=== PATIENT | male | born 1990 | race American Indian/Alaskan Native ===

== ENCOUNTER 2019-02-04 16:51 | Inpatient (IN) | payer OTHER ==
--- NOTE | 2019-02-04 17:13 | Emergency Department Report ---
ED Seizure HPI - General Chief Complaint: Seizure Stated Complaint: SEIZURE Time Seen by Provider: 02/04/19 17:01 Source: patient, EMS Mode of arrival: Stretcher Limitations: No Limitations - History of Present Illness Initial Comments: Patient is a 28-year-old male with seizure activity. Patient states he had a seizure about 20 minutes ago. Patient states he still feeling a little confused. Patient states she does not remember having a seizure. His seizure witnessed by his family. Mother is at bedside to help with history. Mother states the father stated denied his head and was confused after the shaking. The shaking lasted a few minutes and terminated on its own. Patient denies headache. Mother denies trauma. EMS brought the patient to the hospital. Patient states he drinks daily and his last beer was 10 AM this morning. MD Complaint: seizure -: Sudden Description of Episode: loss of consciousness, tonic-clonic movement, post-event confusion -: minutes(s) Witnessed:: Yes Trauma: No Seizure History: none Place: home Possible Precipitating Event: none Associated Symptoms: confusion, malaise. denies: chest pain, cough, diaphoresis, fever/chills, loss of appetite, rash, shortness of breath, syncope, weakness, tongue injury, shoulder dislocation Treatments Prior to Arrival: none - Related Data Allergies Allergy/AdvReac Type Severity Reaction Status Date / Time No Known Allergies Allergy Unverified 02/04/19 17:09 ED Review of Systems ROS: Stated complaint: SEIZURE Other details as noted in HPI Constitutional: denies: chills, fever Eyes: denies: eye pain, eye discharge, vision change ENT: denies: ear pain, throat pain Respiratory: denies: cough, shortness of breath, wheezing Cardiovascular: denies: chest pain, palpitations Endocrine: no symptoms reported Gastrointestinal: denies: abdominal pain, nausea, diarrhea Genitourinary: denies: urgency, dysuria Musculoskeletal: denies: back pain, joint swelling, arthralgia Skin: denies: rash, lesions Neurological: confusion. denies: headache, weakness, paresthesias Psychiatric: denies: anxiety, depression Hematological/Lymphatic: denies: easy bleeding, easy bruising ED Past Medical Hx - Past Medical History Previous Medical History?: Yes Additional medical history: arteriovenous malformation - Surgical History Past Surgical History?: Yes Additional Surgical History: Brain surgery - Family History Family history: no significant - Social History Smoking Status: Current Every Day Smoker Substance Use Type: Alcohol ED Physical Exam - General Limitations: No Limitations General appearance: alert, in no apparent distress - Head Head exam: Present: atraumatic, normocephalic - Eye Eye exam: Present: normal appearance - ENT ENT exam: Present: mucous membranes moist - Neck Neck exam: Present: normal inspection - Respiratory Respiratory exam: Present: normal lung sounds bilaterally. Absent: respiratory distress, wheezes, rales - Cardiovascular Cardiovascular Exam: Present: regular rate, normal rhythm. Absent: systolic murmur, diastolic murmur, rubs, gallop - GI/Abdominal GI/Abdominal exam: Present: soft, normal bowel sounds. Absent: distended, te nderness - Rectal Rectal exam: Present: deferred - Extremities Exam Extremities exam: Present: normal inspection - Back Exam Back exam: Present: normal inspection - Neurological Exam Neurological exam: Present: alert, oriented X3 - Psychiatric Psychiatric exam: Present: normal affect, normal mood - Skin Skin exam: Present: warm, dry, intact, normal color. Absent: rash ED Course Vital Signs 02/04/19 17:19 Temperature 98.3 F Pulse Rate 78 Respiratory 16 Rate Blood Pressure 105/86 [Left] O2 Sat by Pulse 98 Oximetry - Reevaluation(s) Reevaluation #1: I discussed all results with patient. Patient was admitted to the hospitalist service. Patient agrees with plan of care and admission. 02/04/19 19:50 - Consultations Consultation #1: Hospitalist consult for admission. Hospitalist to admit patient and assume care of patient. 02/04/19 19:50 ED Medical Decision Making - Lab Data Result diagrams: 02/04/19 18:15 02/04/19 18:15 - Radiology Data Radiology results: report reviewed CT head/brain wo con INDICATION: New onset seizures; underresponsive TECHNIQUE: Routine CT head without contrast. Sagittal and coronal reformatted images were obtained. All CT scans at this location are performed using CT dose reduction for ALARA by means of automated exposure control. COMPARISON: None. 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 Encephalomalacia is seen in the inferior frontal lobes bilaterally. In these images, I do not see MR findings to suggest acute subarachnoid hemorrhage are acute ischemia. No acute hemorrhage, mass effect, midline shift, hydrocephalus, or acute, large territorial infarct. CRANIOCERVICAL JUNCTION: No significant abnormality. ORBITS: No significant abnormality of visualized orbits. SINUSES / MASTOIDS: Coastal thickening is seen in the left maxillary sinus and left ethmoid air cell. ADDITIONAL FINDINGS: None. IMPRESSION: Postsurgical changes from the clipping of aneurysm; encephalomalacia in the anterior inferior frontal lobe; I do not see acute intracranial parenchymal lesion. - Medical Decision Making Patient is a 28-year-old male presents emergency room with complaints of new onset seizure. The origin of the patient's seizure difficult to identify and the patient admitted to the hospitalist service. Patient is a daily drinker and only drank 1 drink this morning and then had a seizure. Patient's labs unremarkable. Patient's head CT is negative for acute findings. - Differential Diagnosis withdrawal seizure. Seizure-like activity. New-onset seizure Critical Care Time: Yes Critical care attestation.: If time is entered above; I have spent that time in minutes in the direct care of this critically ill patient, excluding procedure time. Critical Care Time: 35 minutes ED Disposition Clinical Impression: New onset seizure, Seizure-like activity Disposition: OP ADMIT IP TO THIS HOSP Is pt being admited?: Yes Does the pt Need Aspirin: No Condition: Critical Time of Disposition: 19:48
[2019-02-04 19:03] LABS: Hematocrit 39.9 % (35.5-45.6); Hemoglobin 14.1 gm/dl (11.8-15.2); Mean Corpuscular HGB Conc 35 % (32-34); Mean Corpuscular Volume 87 fl (84-94); Platelet Count 266 K/mm3 (140-440); Red Blood Count 4.59 M/mm3 (3.65-5.03); Red Cell Distribution Width 14.7 % (13.2-15.2)
[2019-02-04 19:04] LABS: BUN/Creatinine Ratio 17; Blood Urea Nitrogen 15 mg/dL (9-20); Calcium 9.8 mg/dL (8.4-10.2); Hemolysis Index 16
--- NOTE | 2019-02-04 19:40 | Cat Scan Report ---
CT head/brain wo con INDICATION: New onset seizures; underresponsive TECHNIQUE: Routine CT head without contrast. Sagittal and coronal reformatted images were obtained. A ll CT scans at this location are performed using CT dose reduction for ALARA by means of automated ex posure control. COMPARISON: None. 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 Encephalomalacia is seen in the inferior frontal lobes bilaterally. In these images, I do not see MR findings to suggest acute subarachnoid hemorrhage are acute ischemia. No acute hemorrhage, mass effect, midline shift, hydrocephalus, or acute, large territorial infarct. CRANIOCERVICAL JUNCTION: No significant abnormality. ORBITS: No significant abnormality of visualized orbits. SINUSES / MASTOIDS: Coastal thickening is seen in the left maxillary sinus and left ethmoid air cell. ADDITIONAL FINDINGS: None. 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 Signer Name: Sammy Peña MD Signed: 02/04/2019 7:35 PM Workstation Name: [id number]
[2019-02-04 21:11] LABS: Bilirubin,Urine NEG (Negative); Blood,Urine MOD (Negative); Color,Urine Yellow (Yellow); Mucus,Urine FEW /HPF; Protein,Urine <15 mg/dL mg/dL (Negative); Urobilinogen,Urine < 2.0 mg/dL (<2.0)
[2019-02-04 21:25] LABS: Amphetamine Screen,Urine PRESUMPTIVE NEGATIVE; Benzodiazepines Screen,Urine PRESUMPTIVE NEGATIVE; Cannabinoid Screen,Urine PRESUMPTIVE NEGATIVE; Methadone Screen,Urine PRESUMPTIVE NEGATIVE; Opiate Screen,Urine PRESUMPTIVE NEGATIVE
[2019-02-04 21:41] LABS: Cocaine Screen,Urine PRESUMPTIVE POSITIVE
[2019-02-04] MEDS ORDERED: VITAMIN B1 IV ONE (21:53)
[2019-02-04] MEDS ORDERED: FOLVITE IV ONE (21:53)
[2019-02-04] MEDS ORDERED: D5NS IV ONE (21:53)
[2019-02-04] MEDS ORDERED: INFUVITE IV ONE (21:53)
[2019-02-04] MEDS ORDERED: ATIVAN IV PRN (21:56)
[2019-02-04] MEDS ORDERED: ZOFRAN IV PRN (21:57)
[2019-02-04] MEDS ORDERED: TYLENOL PO PRN (21:58)
[2019-02-04] MEDS ORDERED: VITAMIN B-1 100 MG, FOLVITE 1 MG, INFUVITE 10 ML in NACL 0.9% 1000 ML 1,000 ML IV ONE (22:04)
[2019-02-04] MEDS: KEPPRA PO SCH (23:49)
[2019-02-04] MEDS: HEPARIN SUB-Q SCH (23:50)
[2019-02-04] MEDS ORDERED: KEPPRA PO ONE (23:54)
[2019-02-04] MEDS ORDERED: HEPARIN ONE (23:54)
[2019-02-05 05:44] LABS: BUN/Creatinine Ratio 16; Blood Urea Nitrogen 13 mg/dL (9-20); Calcium 8.9 mg/dL (8.4-10.2); Hemolysis Index 4
[2019-02-05] MEDS: KEPPRA PO SCH ×2 (09:50→21:56)
[2019-02-05] MEDS: HEPARIN SUB-Q SCH ×2 (09:50→21:56)
--- NOTE | 2019-02-05 10:23 | Progress Note ---
Assessment and Plan Assessment and plan: 28-year-old patient was admitted witnessed seizures, found to be postictal stage in the emergency room --Seizures; Seizure precautions, Ativan when necessary, continue antiepileptic medication Keppra Supportive care --History of AV malformation/status post brain surgery; Supportive care --Cocaine abuse; colchicine, advised to quit recreational drug use --Ongoing tobacco use; smoking cessation, nicotine patch as needed Preventative counseling done spent 15 minutes --DVT prphylaxis:Heparin Monitor closely and adjust the management as needed History Interval history: Patient seen and examined, medical records removed Admitted with seizures, has h/o brain surgery No new episodes of seizures Hospitalist Physical - Constitutional Vitals: Temp Pulse Resp BP Pulse Ox 97.7 F 67 18 97/71 99 02/05/19 08:37 02/05/19 08:37 02/05/19 08:37 02/05/19 08:37 02/05/19 08:37 General appearance: Present: no acute distress, well-nourished - EENT Eyes: Present: PERRL, EOM intact - Neck Neck: Present: supple, normal ROM - Respiratory Respiratory effort: normal Respiratory: bilateral: diminished, negative: rales, rhonchi, wheezing - Cardiovascular Rhythm: regular Heart Sounds: Present: S1 & S2 - Extremities Extremities: no ischemia, No edema - Abdominal General gastrointestinal: soft, non-tender, non-distended, normal bowel sounds - Integumentary Integumentary: Present: clear, warm - Psychiatric Psychiatric: appropriate mood/affect, cooperative - Neurologic Neurologic: CNII-XII intact, moves all extremities Results - Labs CBC & Chem 7: 02/04/19 18:15 02/05/19 04:40 Labs: Laboratory Last Values WBC 6.6 K/mm3 (4.5-11.0) 02/04/19 18:15 RBC 4.59 M/mm3 (3.65-5.03) 02/04/19 18:15 Hgb 14.1 gm/dl (11.8-15.2) 02/04/19 18:15 Hct 39.9 % (35.5-45.6) 02/04/19 18:15 MCV 87 fl (84-94) 02/04/19 18:15 MCH 31 pg (28-32) 02/04/19 18:15 MCHC 35 % (32-34) H 02/04/19 18:15 RDW 14.7 % (13.2-15.2) 02/04/19 18:15 Plt Count 266 K/mm3 (140-440) 02/04/19 18:15 Sodium 141 mmol/L (137-145) 02/05/19 04:40 Potassium 3.8 mmol/L (3.6-5.0) 02/05/19 04:40 Chloride 105.0 mmol/L (98-107) 02/05/19 04:40 Carbon Dioxide 24 mmol/L (22-30) 02/05/19 04:40 16 mmol/L 02/05/19 04:40 BUN 13 mg/dL (9-20) 02/05/19 04:40 0.8 mg/dL (0.8-1.5) 02/05/19 04:40 Estimated GFR > 60 ml/min 02/05/19 04:40 16 % 02/05/19 04:40 Glucose 75 mg/dL (75-100) 02/05/19 04:40 POC Glucose 78 (70-105) 02/05/19 04:41 Calcium 8.9 mg/dL (8.4-10.2) 02/05/19 04:40 Yellow (Yellow) 02/04/19 20:44 Clear (Clear) 02/04/19 20:44 5.0 (5.0-7.0) 02/04/19 20:44 Ur Specific [place] 1.015 (1.003-1.030) 02/04/19 20:44 <15 mg/dl mg/dL (Negative) 02/04/19 20:44 Neg mg/dL (Negative) 02/04/19 20:44 20 mg/dL (Negative) 02/04/19 20:44 Mod (Negative) 02/04/19 20:44 Neg (Negative) 02/04/19 20:44 Neg (Negative) 02/04/19 20:44 < 2.0 mg/dL (<2.0) 02/04/19 20:44 Ur Leukocyte Esterase Neg (Negative) 02/04/19 20:44 6.0 /HPF (0.0-6.0) 02/04/19 20:44 4.0 /HPF (0.0-6.0) 02/04/19 20:44 U Epithel Cells (Auto) < 1.0 /HPF (0-13.0) 02/04/19 20:44 Few /HPF 02/04/19 20:44 Presumptive negative 02/04/19 20:44 Presumptive negative 02/04/19 20:44 Ur Barbiturates Screen Presumptive negative 02/04/19 20:44 Ur Phencyclidine Scrn Presumptive negative 02/04/19 20:44 Ur Amphetamines Screen Presumptive negative 02/04/19 20:44 U Benzodiazepines Scrn Presumptive negative 02/04/19 20:44 Presumptive positive 02/04/19 20:44 U Marijuana (THC) Screen Presumptive negative 02/04/19 20:44 Disclamer 02/04/19 20:44 Plasma/Serum Alcohol < 0.01 % (0-0.07) 02/04/19 18:15 Active Medications - Current Medications Current Medications: Generic Name Dose Route Start Last Admin Trade Name Freq PRN Reason Stop Dose Admin Acetaminophen 650 mg 02/04/19 21:58 Tylenol PO Q4H PRN Fever >101 Heparin Sodium (Porcine) 5,000 unit 02/04/19 22:00 02/05/19 09:50 Heparin SUB-Q 5,000 unit Q12HR ADI Administration Levetiracetam 500 mg 02/04/19 22:00 02/05/19 09:50 Keppra PO 500 mg BID ADI Administration Lorazepam 1 mg 02/04/19 21:56 Ativan IV Q2H PRN Seizures Ondansetron HCl 4 mg 02/04/19 21:57 Zofran IV Q8H PRN Nausea And Vomiting
--- NOTE | 2019-02-05 11:12 | Progress Note ---
Subjective Date of service: 02/05/19 Interval history: patient is seen and full consult is dictated paln to address EEG and will need CTYA to be sure that the AVM is fully contained surgery wa ay age 13 per hx exam now normal agree with keppra therapy Objective - Vital Sign Vital Signs - 12hr 02/05/19 02/05/19 02/05/19 00:00 00:15 04:35 Temperature 98.0 F 98.1 F Pulse Rate 69 66 69 Respiratory 18 18 Rate Blood Pressure 106/73 109/64 O2 Sat by Pulse 96 99 Oximetry 02/05/19 08:37 Temperature 97.7 F Pulse Rate 67 Respiratory 18 Rate Blood Pressure 97/71 O2 Sat by Pulse 99 Oximetry - Laboratory Findings CBC and BMP: 02/04/19 18:15 02/05/19 04:40 Abnormal Lab Findings: Abnormal Labs 02/04/19 02/04/19 18:15 18:15 MCHC 35 H Glucose 60 L
--- NOTE | 2019-02-05 11:25 | History and Physical Report ---
CHIEF COMPLAINT: Seizure attack. HISTORY OF PRESENT ILLNESS: The patient is a 28-year-old male who was noted by family to have sudden onset of seizure at home. Seizure according to the father lasted for about 5 minutes and was characterized by tonic clonic jerky movement of the body, during which the patient was completely confused and was drooling saliva from the mouth. Prior to the seizure, there was no history of fever or chills. No history of shortness of breath or chest pain, any sign of aura prior to the jerky movement of the body. The patient also denied history of chest pain or shortness of breath and was brought to the Emergency Room by EMS. The patient admits to drinking alcohol daily and had his last beer in the morning prior to having seizure. The patient has not had any seizure attack in his life before. PAST MEDICAL HISTORY: Pertinent for AV malformation. Also, the patient has past medical history of alcohol and drug abuse. PAST SURGICAL HISTORY: Pertinent for brain surgery for aneurysm. FAMILY HISTORY: Noncontributory. SOCIAL HISTORY: The patient smokes cigarettes, drinks alcohol and uses illicit drug. MEDICATIONS: The patient is not on any medication. ALLERGIES: There are no known drug allergies. REVIEW OF SYSTEMS: CONSTITUTIONAL: There is no fever, no chills, no diaphoresis. HEENT: There is no headache or sore throat. CARDIOVASCULAR SYSTEM: There is no chest pain or orthopnea. RESPIRATORY SYSTEM: There is no shortness of breath or cough. GASTROINTESTINAL SYSTEM: There is no nausea, no vomiting. No abdominal pain, diarrhea or constipation. NEUROLOGICAL SYSTEM: Seizure attack noted. Change in mental status noted. MUSCULOSKELETAL SYSTEM: There is no joint pain or swelling. DERMATOLOGICAL SYSTEM: There is no skin rash or itching. GENITOURINARY SYSTEM: There is no dysuria, hematuria or flank pain. Rest of system review is normal. PHYSICAL EXAMINATION: GENERAL: At the time of exam, the patient was found to be alert and oriented x 3, not in acute distress. VITAL SIGNS: At the initial time of presentation showed temperature of 98.3 degrees Fahrenheit, pulse of 78, respirations 16, blood pressure 105/86, O2 sat of 98% on room air. HEENT: Showed pupils to be equal, round, reactive to light and accommodating. Extraocular muscles are intact. NECK: Supple with no JVD or carotid bruit. CARDIOVASCULAR SYSTEM: Showed normal first and second heart sounds with no gallops or murmurs. RESPIRATORY SYSTEM: Showed good air entry on both sides of the lungs with no abnormal breath sounds. GASTROINTESTINAL SYSTEM: Showed abdomen to be full, soft, nontender with no organomegaly or rigidity. NEUROLOGICAL: Shows no focal deficit. MUSCULOSKELETAL SYSTEM: Showed no joint swelling or tenderness. DERMATOLOGICAL SYSTEM: Showed no skin rash. GENITOURINARY SYSTEM: Showing no costovertebral angle tenderness. PERTINENT LABORATORY DATA AND IMAGING STUDIES: The patient has CT of the head without contrast done that shows postsurgical changes from the clipping of aneurysm. There is finding of encephalomalacia in the anterior inferior frontal lobe. There is finding of no acute intracranial lesion. Lab results; the patient's CBC was unremarkable and the patient's chemistry was unremarkable except for low blood glucose level of 60. The patient's urinalysis came back normal. Urine drug screen is positive for cocaine. The patient's alcohol level is unremarkable. DIAGNOSES: 1. Post seizure state. 2. Polysubstance abuse involving cocaine and alcohol. PLAN OF CARE: 1. The patient will be admitted to telemetry. 2. The patient will be on IV Ativan 1 mg every 2 hours as needed for seizure attack and also the patient will be placed on Keppra 500 mg by mouth twice daily. 3. The patient will be on Tylenol 650 mg by mouth every 4 hours for fever and headache. 4. The patient will be on heparin 5000 units subcutaneous q. 12 hours for DVT prophylaxis and will be on IV Zofran 4 mg every 8 hours for nausea and vomiting. 5. The patient will be on Accu-Chek q. a.c. and at bedtime and will be on hypoglycemic protocol since the patient is not known to be diabetic. 6. The patient will be on IV banana bag using thiamine 100 mg and multivitamin 1 ampoule and 1 mg of folic acid with 2 gram of magnesium sulfate in 1 liter of normal saline given at 150 mL an hour every day for prevention of alcohol withdrawal. 7. The patient will have Neurology consult when available. Currently, there is no Neurology coverage this weekend. 8. The patient will be on regular diet and will be on Tylenol 650 mg by mouth every 4 hours for fever and headache. JOB# [id number] OCN/NTS
--- NOTE | 2019-02-06 05:32 | Consultation ---
HISTORY OF PRESENT ILLNESS: This 28-year-old black male that presents to the Emergency Room at [facility] after having a generalized seizure. The patient was brought to the hospital after being at home. He apparently was standing, turned abruptly, lost consciousness and went to a generalized seizure. Had no warning prior to that. He has a long history of being in relatively good health, although he does drink alcohol on a regular basis. 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 There is a metallic clip, perhaps even a stent in the right medial frontal lobe, is very suggestive of a right frontal angioma and/or AVM and/or arteriovenous malformation. There is also some extension of this into the left medial entorhinal cortex, so there is a bifrontal base lesion. The remainder of the CT is essentially unremarkable with no acute changes noted. The patient since admission has remained relatively stable with no further seizures, started on Keppra therapy. Has hematocrit 39.9, white blood count of 6600. Urinalysis is unremarkable. The patient has a positive cocaine screen, however, on his drug screen. ALLERGIES: The patient has no known allergies. PHYSICAL EXAMINATION: VITAL SIGNS: Evaluation of the patient at this time on examination, his blood pressure is 101/60, pulse rate 80, respirations 18. NEUROLOGIC: Cranial nerves 2-12 are intact. Temperature is 97.7. Ocular movements are full. Fundi benign. Speech clear. Affect appropriate. No seizures are noted to be present. No tremors or asterixis are noted. Reflexes are all 1+ and symmetrical. The patient has excellent memory, does not appear to be in any way affected by postictally. There is no postictal paralysis, speech difficulty. IMPRESSION: Rather impressive subfrontal medial large area of encephalomalacia with surgical clips, very suggestive of aneurysm or AVM. I think at some point, the patient should have a CTA, perhaps on Thursday. Get an EEG. Continue the patient on Keppra therapy. Advised the patient not to drink alcohol in the future. Also, the issue of the cocaine presence should be addressed. This certainly can trigger seizures as can the alcohol, but at a baseline with such a large lesion present post-surgically, he should be on baseline seizure management for this disorder. JOB# [id number] DANTE/NTS
[2019-02-06 08:33] VITALS: BP 103/73
--- NOTE | 2019-02-06 09:52 | Progress Note ---
Subjective Date of service: 02/06/19 Interval history: should be OK to go home I did recommend no alcohol or cocaine use in future can have further tests as outpatient Objective - Vital Sign Vital Signs - 12hr 02/06/19 02/06/19 02/06/19 00:00 00:31 04:47 Temperature 98.2 F 98.5 F Pulse Rate 75 63 82 Respiratory 18 18 Rate Blood Pressure 100/66 102/73 O2 Sat by Pulse 100 98 Oximetry 02/06/19 07:47 Temperature 97.5 F L Pulse Rate 53 L Respiratory 18 Rate Blood Pressure 103/73 O2 Sat by Pulse 99 Oximetry - Laboratory Findings CBC and BMP: 02/04/19 18:15 02/05/19 04:40 Abnormal Lab Findings: Abnormal Labs 02/04/19 02/04/19 18:15 18:15 MCHC 35 H Glucose 60 L
[2019-02-06] MEDS: KEPPRA PO SCH (11:08)
--- NOTE | 2019-02-06 11:34 | Discharge Summary ---
Providers - Providers Date of Admission: 02/04/19 21:50 Date of discharge: 02/06/19 Attending physician: IVONNE LANG 02/05/19 10:33 Consult to Physician [CONS] Routine Comment: Consulting Provider: ELIZABETH OCONNOR Physician Instructions: Reason For Exam: seizures [facility] Reason for admission: witnessed seizures Condition: Fair Pertinent studies: CT head without contrast; postsurgical changes from the clipping of aneurysm, encephalomalacia in the anterior inferior frontal lobe.No acute abnormality. Hospital course: 28-year-old male patient with significant past medical history of AV malformation status post brain surgery in the past was admitted through emergency room with history of witnessed seizure, patient was placed on seizure precautions antiplatelet medications subsequently evaluated by neurologist Medications optimized, CT head without contrast no acute abnormalities noted Patient's symptoms significantly improved, no new episodes of seizures since admission Patient has positive drug screen for cocaine. Strongly advised to quit recreational drug use Today patient is comfortable no new complaints vital signs stable,Physical examination no new changes Neurology cleared for discharge and follow-up as outpatient for further evaluation and management Patient is hemodynamically and clinically stable at discharge. Discharge diagnosis; --Witnessed Seizures; Seizure precautions, Ativan when necessary, continue antiepileptic medication Keppra Follow neurology upon discharge for further evaluation and management --History of AV malformation/status post brain surgery; --Cocaine abuse; advised to quit recreational drug use --Ongoing tobacco use; smoking cessation, nicotine patch as needed Preventative counseling done spent 15 minutes --DVT prphylaxis:Heparin Cleared by neurology for discharge and follow-up as outpatient Advice he is a precautions, advised not to drive Disposition: DC-01 TO HOME OR SELFCARE Time spent for discharge: 32 min Core Measure Documentation - Palliative Care Palliative Care/ Comfort Measures: Not Applicable - Core Measures Any of the following diagnoses?: none Exam - Constitutional Vitals: Temp Pulse Resp BP Pulse Ox 97.5 F L 53 L 18 103/73 99 02/06/19 07:47 02/06/19 07:47 02/06/19 07:47 02/06/19 07:47 02/06/19 07:47 General appearance: Present: no acute distress, well-nourished - EENT Eyes: Present: PERRL, EOM intact - Neck Neck: Present: supple, normal ROM - Respiratory Respiratory effort: normal Respiratory: bilateral: diminished, negative: rales, rhonchi, wheezing - Cardiovascular Rhythm: regular Heart Sounds: Present: S1 & S2 - Extremities Extremities: no ischemia, No edema - Abdominal General gastrointestinal: Present: soft, non-tender, non-distended, normal bowel sounds - Integumentary Integumentary: Present: clear, warm - Musculoskeletal Musculoskeletal: strength equal bilaterally, generalized weakness - Psychiatric Psychiatric: appropriate mood/affect, cooperative - Neurologic Neurologic: CNII-XII intact, moves all extremities Plan Activity: advance as tolerated, no driving until cleared by PCP, other (seizure precautions) Diet: regular Additional Instructions: No driving until cleared by PMD/neurology. Advised to quit cocaine and tobacco use Follow up with: ANTONY FLORES MD [Primary Care Provider] - 7 Days ELIZABETH OCONNOR MD [Staff Physician] - 7 Days Prescriptions: RX: Nicotine [Habitrol] 14 mg TD DAILY #30 patch RX: levETIRAcetam [Keppra TAB] 500 mg PO BID #60 tablet
== END 2019-02-06 16:28 | disposition home or self-care (01) | DRG 101 ==
LOC: ED 16:51 → 4A 21:50
PROVIDERS: ADMIT Internal Medicine; ATTEND Internal Medicine
DX: G40.89 Other seizures (principal); F14.10 Cocaine abuse, uncomplicated; F10.10 Alcohol abuse, uncomplicated; Y90.9 Presence of alcohol in blood, level not specified; G93.89 Other specified disorders of brain; F17.200 Nicotine dependence, unspecified, uncomplicated; F17.210 Nicotine dependence, cigarettes, uncomplicated; Z71.51 Drug abuse counseling and surveillance of drug abuser; Z71.6 Tobacco abuse counseling
CPT/HCPCS: 36415; 70450; 80048; 80307; 80320; 81001; 82962; 83735; 84100; 84132; 85027; 99406; G0378; G0480; J1644; J3411; J7030